=== PATIENT | female | born 1995 | race Caucasian/White ===

== ENCOUNTER 2020-10-14 13:59 | Outpatient (CLI) | payer OTHER, SELFPAY ==
--- NOTE | ~2020-10-14 | US_ITS ---
US breast LT complete DATE: 10/14/2020 14:26 INDICATION: Left breast pain TECHNIQUE: Real-time imaging of the complete left breast COMPARISON: None FINDINGS: There is dense tissue. No suspicious mass or shadowing is evident. No simple cysts or other significant sonographic finding is noted. IMPRESSION: BI-RADS Category 1: Negative Reviewed, dictated and finalized at [facility]. Reviewed, dictated and finalized at [facility].
== END 2020-10-14 14:00 | disposition home or self-care (01) ==
LOC: ANHIMG 14:05
PROVIDERS: PCP Family Medicine; Visit Provider Obstetrics & Gynecology
DX: N64.4 Mastodynia (principal)
CPT/HCPCS: 76641

== ENCOUNTER 2022-09-14 10:24 | Outpatient (CLI) | payer OTHER, SELFPAY ==
--- NOTE | ~2022-09-14 | US_ITS ---
US OB follow up DATE: 09/14/2022 11:09 INDICATION: anatomy screen TECHNIQUE: Real-time imaging, Doppler analysis COMPARISON: None FINDINGS: Single intrauterine gestation, fetus in breech presentation, longitudinal lie. Posterior pl acenta. No heart motion. anatomy is somewhat ill-defined, likely due to demise. Biparietal diameter 3.27 cm consistent with 16 weeks 1 day Head circumference 14.15 cm; 17 weeks 3 days Abdominal circumference 12.43 cm; 18 weeks Femur length 2.86 cm; 18 weeks 5 days Composite age by Hadlock formula based upon averaging of these measurements would be 17 weeks 4 days +/- 1 week 2 days. Cervix length is approximately 4.1 cm. Amniotic fluid volume is subjectively normal. IMPRESSION: demise Dr. Albright telephoned the report to [facility], on 09/14/2022 at 1130 hours Reviewed, dictated and finalized at [facility]. Reviewed, dictated and finalized at location [facility]. HEAR OPERATOR
== END 2022-09-14 10:25 | disposition home or self-care (01) ==
PROVIDERS: PCP Family Medicine; Visit Provider Obstetrics & Gynecology
DX: Z36.89 Encounter for other specified antenatal screening (principal); Z3A.20 20 weeks gestation of pregnancy; O02.1 Missed abortion
CPT/HCPCS: 76816